=== PATIENT | female | born 1990 | race Caucasian/White ===

== ENCOUNTER 2019-08-08 14:54 | Emergency (ER) | payer OTHER ==
[~2019-08-08] VITALS: Ht 160 cm; Wt 83.9 kg
[2019-08-08] MEDS ORDERED: KETOROLAC 30 MG/1 ML ONE (15:28)
[2019-08-08] MEDS ORDERED: KETOROLAC 30 MG/1 ML IM ONE (15:30)
--- NOTE | 2019-08-08 15:54 | NUR ---
Assumed care of pt. labs pending. pt to and from RAD. VSS. c/o 03/16 YOUNG. will ask for tylenol.
[2019-08-08 15:59] LABS: RAPID INFLUENZA A Negative (Negative)
[2019-08-08 16:00] LABS: RAPID INFLUENZA B POSITIVE (Negative)
[2019-08-08] MEDS ORDERED: ACETAMINOPHEN 325 MG TABLET ONE (16:02)
[2019-08-08] MEDS ORDERED: ACETAMINOPHEN 325 MG TABLET PO ONE (16:30)
[2019-08-08 16:48] VITALS: BP 116/80
== END 2019-08-08 16:50 | disposition home or self-care (01) ==
LOC: ED 16:40
DX: J10.1 Influenza due to other identified influenza virus with other respiratory manifestations (principal)
CPT/HCPCS: 71046; 87081; 87400; 87880; 96372; 99284; J1885

== ENCOUNTER 2019-08-10 16:42 | Emergency (ER) | payer OTHER ==
[~2019-08-10] VITALS: Ht 162.6 cm; Wt 84.0 kg
[2019-08-10 16:44] VITALS: BP 137/86
--- NOTE | 2019-08-10 17:15 | NUR ---
PT CAME IN THURSDAY. WAS +FLU. BEEN TAKING TAMIFLU. STATED "MY CHEST HAS BEEN GETTIN TIGHTER AND I STILL HAVE A COUGH. NOT FEELING BETTER"
== END 2019-08-10 19:25 | disposition home or self-care (01) ==
LOC: ED 17:30
DX: J10.1 Influenza due to other identified influenza virus with other respiratory manifestations (principal)
CPT/HCPCS: 71045; 99283

== ENCOUNTER 2020-02-04 07:23 | Emergency (ER) | payer MEDICAID, OTHER ==
[~2020-02-04] VITALS: Ht 162.6 cm; Wt 86.1 kg
--- NOTE | 2020-02-04 07:47 | NUR ---
osei-yung is at the bedside for assessment
[2020-02-04] MEDS ORDERED: SODIUM CHLORIDE 0.9% 1,000ML IVBOLUS ONE ×2 (08:00→10:30)
[2020-02-04] MEDS ORDERED: SODIUM CHLORIDE FLUSH 10ML SYR IVF ONE (08:00)
[2020-02-04] MEDS ORDERED: KETOROLAC 30 MG/1 ML IVPush ONE (08:00)
[2020-02-04] MEDS ORDERED: ONDANSETRON 2MG/ML, 2ML IVPush ONE (08:00)
[2020-02-04] MEDS ORDERED: ONDANSETRON 2MG/ML, 2ML ONE (08:05)
[2020-02-04] MEDS ORDERED: KETOROLAC 30 MG/1 ML ONE (08:05)
[2020-02-04 08:18] LABS: BASOPHILS # (AUTO) 0.06 x10^3/uL (0-0.1); BASOPHILS % (AUTO) 1 % (0-1); EOSINOPHILS # (AUTO) 0.05 x10^3/uL (0-0.4); EOSINOPHILS % (AUTO) 1 % (1-7); LYMPHOCYTES # (AUTO) 0.91 x10^3/uL (1-3.4); LYMPHOCYTES % (AUTO) 8 % (22-44); MD NO; MEAN CORPUSCULAR HEMOGLOBIN 31.2 pg (27.0-34.8); MEAN CORPUSCULAR HGB CONC 33.7 g/dL (32.4-35.8); MEAN CORPUSCULAR VOLUME 92.8 fL (80-100); MEAN PLATELET VOLUME 8.3 fL (7.4-10.4); MONOCYTES # (AUTO) 0.47 x10^3/uL (0.2-0.8); MONOCYTES % (AUTO) 4 % (2-9); NEUTROPHILS # (AUTO) 9.44 x10^3/uL (1.8-6.8); NEUTROPHILS % (AUTO) 86 % (42-75); PLATELET COUNT 337 x10^3/uL (130-400); RED BLOOD COUNT 4.53 x10^6/uL (3.82-5.3); RED CELL DISTRIBUTION WIDTH 13.4 % (9.6-15.2)
--- NOTE | 2020-02-04 08:18 | NUR ---
Pt reports bilateral flank pain since yesterday, increased on left over right and intermittent. non-tender on palpation. N/V since 0430 this am. Pt sitting up in bed, n/v during med administration. Pt reports some relief following small amount of vomit. Iv start, labs sent, medicated per emar, ivf infusing. Pt aware of need for UA.
[2020-02-04 08:22] LABS: ALBUMIN 3.6 g/dL (3.4-5.0); ANION GAP 9 mmol/L (5-15); CALCIUM 8.8 mg/dL (8.5-10.1); CHLORIDE 110 mmol/L (98-107)
[2020-02-04 08:27] LABS: ALANINE AMINOTRANSFERASE 14 U/L (12-78); ALKALINE PHOSPHATASE 65 U/L (45-117); BILIRUBIN,TOTAL 0.6 mg/dL (0.2-1.0); CREATININE 1.76 mg/dL (0.55-1.02); TOTAL PROTEIN 7.5 g/dL (6.4-8.2)
[2020-02-04] MEDS ORDERED: PROMETHAZINE 25 MG/ML, 1ML ONE (09:06)
--- NOTE | 2020-02-04 09:11 | NUR ---
pt reports decrease in pain, still nauseated. Pt medicated per emar. UA sent to lab. Awaiting results.
[2020-02-04] MEDS ORDERED: PROMETHAZINE 25 MG/ML, 1ML IM ONE (09:30)
[2020-02-04 09:36] LABS: MICROSCOPIC INDICATED
--- NOTE | 2020-02-04 09:54 | NUR ---
Pt resting with eyes closed upon entering room. NAD noted at this time. Awaiting UA results.
--- NOTE | 2020-02-04 10:28 | NUR ---
REPORT TO KULDIP ALCARAZ.
--- NOTE | 2020-02-04 11:00 | NUR ---
PT REFUSES MINI CATH. IVF INFUSING.
--- NOTE | 2020-02-04 11:40 | NUR ---
PT AMBULATES WELL TO BATHROOM INDEPENDENTLY FOR SECOND UA ATTEMPT. BACK IN BED, NAD NOTED. UA LABELLED AND SENT TO LAB. AWAITING RESULTS.
--- NOTE | 2020-02-04 12:05 | NUR ---
REPORT TO KULDIP GOETZ.
[2020-02-04 12:08] LABS: MICROSCOPIC NOT IND
[2020-02-04 12:29] VITALS: BP 108/70
== END 2020-02-04 13:21 | disposition home or self-care (01) ==
LOC: ED 08:32
DX: N28.9 Disorder of kidney and ureter, unspecified (principal); R11.2 Nausea with vomiting, unspecified; R10.9 Unspecified abdominal pain; K44.9 Diaphragmatic hernia without obstruction or gangrene
CPT/HCPCS: 36415; 74176; 80053; 81001; 81003; 84703; 85025; 87086; 96361; 96372; 96374; 96375; 99285; J1885; J2405; J2550; J7030

== ENCOUNTER 2020-03-17 03:59 | Emergency (ER) | payer MEDICAID, OTHER ==
[~2020-03-17] VITALS: Ht 162.6 cm; Wt 79.0 kg
--- NOTE | 2020-03-17 04:35 | NUR ---
PLEAS[employer] YOUNG LADY HERE, AWOKE 0200 AM HAD EPISODE VOMITING, CONTINUES NAUSEATED, ALSO COMPLAIN OF DIZZINESS. WAS SEEN AT [facility] YESTERDAY AND DX WITH UTI, GIVEN RX FOR SEPTRA AND PYRIDIUM, TOOK ONE DOSE LAST NIGHT AT 2100.
[2020-03-17] MEDS ORDERED: ONDANSETRON 2MG/ML, 2ML ONE ×2 (04:39→05:36)
[2020-03-17] MEDS ORDERED: ONDANSETRON 2MG/ML, 2ML IVPush ONE ×2 (05:00→06:00)
[2020-03-17] MEDS ORDERED: SODIUM CHLORIDE FLUSH 10ML SYR IVF ONE (05:00)
[2020-03-17 05:17] LABS: MICROSCOPIC INDICATED
[2020-03-17 05:19] LABS: HCG UR SG <= 1.005 (1.003-1.030)
--- NOTE | 2020-03-17 05:42 | NUR ---
PT CONITNUES NAUSEATED, REMEDICATED WITH ZOFRAN PER ORDER. PT ASSISTED TO BATHROOM REMAINS DIZZY
[2020-03-17 06:01] LABS: CHLORIDE 111 mmol/L (98-107)
[2020-03-17 06:07] LABS: ALANINE AMINOTRANSFERASE 18 U/L (12-78); ALBUMIN 3.8 g/dL (3.4-5.0); ALKALINE PHOSPHATASE 77 U/L (45-117); ANION GAP 9 mmol/L (5-15); BILIRUBIN,TOTAL 0.5 mg/dL (0.2-1.0); CREATININE 1.39 mg/dL (0.55-1.02); TOTAL PROTEIN 8.1 g/dL (6.4-8.2)
[2020-03-17 06:15] LABS: BASOPHILS # (AUTO) 0.04 x10^3/uL (0-0.1); BASOPHILS % (AUTO) 0 % (0-1); EOSINOPHILS % (AUTO) 2 % (1-7); LYMPHOCYTES # (AUTO) 0.95 x10^3/uL (1-3.4); LYMPHOCYTES % (AUTO) 9 % (22-44); MD NO; MEAN CORPUSCULAR HGB CONC 33.7 g/dL (32.4-35.8); MEAN CORPUSCULAR VOLUME 92.1 fL (80-100); MONOCYTES # (AUTO) 0.66 x10^3/uL (0.2-0.8); MONOCYTES % (AUTO) 7 % (2-9); NEUTROPHILS # (AUTO) 8.29 x10^3/uL (1.8-6.8); NEUTROPHILS % (AUTO) 82 % (42-75); PLATELET COUNT 330 x10^3/uL (130-400); RED BLOOD COUNT 4.48 x10^6/uL (3.82-5.3); RED CELL DISTRIBUTION WIDTH 13.1 % (9.6-15.2)
[2020-03-17] MEDS ORDERED: CEFTRIAXONE PMX 1GM/50ML 50 ML ONE (06:22)
[2020-03-17 06:24] VITALS: BP 103/62
[2020-03-17] MEDS ORDERED: CEFTRIAXONE PMX 1GM/50ML 50 ML IV ONE (06:30)
--- NOTE | 2020-03-17 06:57 | NUR ---
REPORT FROM YOLIS ASSUMING CARE OF PT
--- NOTE | 2020-03-17 07:51 | NUR ---
PA AT BEDSIDE FOR REASSESS. PT TO BE D/C HOME SHORTLY
--- NOTE | 2020-03-17 08:10 | NUR ---
PT AMB TO RESTROOM NO ASSIST REQ, PIV DC
== END 2020-03-17 08:25 | disposition home or self-care (01) ==
LOC: ED 04:29
DX: N39.0 Urinary tract infection, site not specified (principal); N10 Acute pyelonephritis; R31.9 Hematuria, unspecified; R00.0 Tachycardia, unspecified
CPT/HCPCS: 36415; 76770; 80053; 81001; 81025; 85025; 87086; 93005; 96365; 96375; 96376; 99285; J0696; J2405

== ENCOUNTER 2020-03-24 01:28 | Emergency (ER) | payer MEDICAID ==
[2020-03-24 01:39] VITALS: BP 130/80
--- NOTE | 2020-03-24 03:23 | NUR ---
TECH WRAPPED PATIENTS FOOT, SCRUTCHES GIVEN.
--- NOTE | 2020-03-24 03:31 | NUR ---
D/C CHARGE PAPERWORK GIVEN TO PATIENT, VERBAL UNDERSTANDING. PATIENT TOLERATED STRETCHERS
== END 2020-03-24 03:33 | disposition home or self-care (01) ==
LOC: ED 03:22
DX: S93.621A Sprain of tarsometatarsal ligament of right foot, initial encounter (principal); W10.8XXA Fall (on) (from) other stairs and steps, initial encounter; Y93.A3 Activity, aerobic and step exercise; Y92.098 Other place in other non-institutional residence as the place of occurrence of the external cause; Y99.8 Other external cause status
CPT/HCPCS: 99283